=== PATIENT | female | born 1970 ===

== ENCOUNTER 2022-09-01 05:53 | Observation (INO) ==
[2022-08-25 12:13] LABS: Basophils % 0.2 % (0.0-0.8); Eosinophils # 0.1 10*3/uL (0.0-0.87); Eosinophils % 2.1 % (0.00-10.9); Hematocrit 37.6 VOL% (35.7-47.0); Hemoglobin 11.5 GM/DL (12.0-16.0); Immature Granulocytes % 0.2 %; Immature Granulocytes Absolute 0.01 #; Lymphocytes # 2.2 10*3/uL (1.4-4.0); Lymphocytes % 38.4 % (21.3-54.2); Mean Corpuscular HGB Conc 30.6 GM/DL (32-36); Mean Corpuscular Volume 67.7 FL (87-102); Monocytes # 0.5 10*3/uL (0.11-0.8); Monocytes % 8.1 % (1.7-12.7); Platelet Count 214 T/CUMM (130-400); Red Blood Count 5.55 MC/CUMM (3.8-5.5); Red Cell Distribution Width 18.2 % (9.3-17.3); White Blood Count 5.7 T/CUMM (4-12)
[2022-08-25 12:30] LABS: Calcium 9.4 MG/DL (8.5-10.1); Osmolality,Calculated 284.1 MOS/KG (273-304)
[2022-09-01] MEDS ORDERED: ROCURONIUM 50 MG/5 ML VIAL IV ONE (06:15)
[2022-09-01] MEDS ORDERED: propofoL 200 MG/20 ML VIAL IV ONE (06:15)
[2022-09-01] MEDS ORDERED: ONDANSETRON 4 MG/2 ML VIAL ONE (06:15)
[2022-09-01] MEDS ORDERED: LIDOCAINE 2% 5 ML VIAL ONE (06:15)
[2022-09-01] MEDS ORDERED: MIDAZOLAM 2 MG/2 ML VIAL ONE (06:16)
[2022-09-01] MEDS ORDERED: fentaNYL 100 MCG/2 ML VIAL ONE (06:16)
[2022-09-01] MEDS ORDERED: GABAPENTIN 400 MG CAPSULE PO ONE (06:28)
[2022-09-01] MEDS ORDERED: FAMOTIDINE 20 MG TABLET PO ONE (06:28)
[2022-09-01] MEDS ORDERED: ACETAMINOPHEN 500 MG TABLET PO ONE (06:28)
[2022-09-01] MEDS ORDERED: BUPIVACAINE MPF 0.5% 30 ML VIAL ONE (06:28)
[2022-09-01] MEDS ORDERED: DEXAMETHASONE 4 MG/1 ML VIAL ONE ×3 (06:28→09:08)
[2022-09-01] MEDS ORDERED: DIAZEPAM 5 MG TABLET PO ONE (06:28)
[2022-09-01] MEDS: LACTATED RINGERS 1,000 ML IV SCH (06:30)
[2022-09-01] MEDS ORDERED: GLYCOPYRROLATE 0.4 MG/2 ML VIAL ONE (09:05)
[2022-09-01] MEDS ORDERED: NEOSTIGMINE 10 MG/10 ML VIAL ONE (09:06)
[2022-09-01] MEDS ORDERED: ONDANSETRON 4 MG/2 ML VIAL IV PRN (09:12)
[2022-09-01] MEDS ORDERED: MORPHINE 2 MG/1 ML SYRINGE IV PRN (09:12)
[2022-09-01] MEDS ORDERED: SEVOFLURANE 1 UNIT/15 MINUTE INH ONE (09:19)
[2022-09-01] MEDS ORDERED: PHENYLEPHRINE 1 MG/10 ML SYRINGE IV ONE (09:20)
[2022-09-01] MEDS ORDERED: ALBUTEROL/IPRATROPIUM 3 ML NEB RESP TX ONE (09:27)
[2022-09-01] MEDS ORDERED: SUGAMMADEX 200 MG/2 ML VIAL IV ONE (09:28)
[2022-09-01] MEDS: ceFAZolin 2,000 MG/50 ML DUPLEX IV SCH ×2 (15:40→23:30)
[2022-09-02] MEDS: LACTATED RINGERS 1,000 ML IV SCH (06:32)
[2022-09-02 07:59] LABS: Basophils % 0.1 % (0.0-0.8); Hematocrit 26.7 VOL% (35.7-47.0); Hemoglobin 8.5 GM/DL (12.0-16.0); Immature Granulocytes % 0.3 %; Immature Granulocytes Absolute 0.02 #; Lymphocytes # 2.9 10*3/uL (1.4-4.0); Lymphocytes % 35.8 % (21.3-54.2); Mean Corpuscular HGB Conc 31.8 GM/DL (32-36); Mean Corpuscular Volume 66.4 FL (87-102); Monocytes # 1.1 10*3/uL (0.11-0.8); Monocytes % 14.2 % (1.7-12.7); Neutrophils % 49.6 % (38.7-73.9); Platelet Count 227 T/CUMM (130-400); Red Blood Count 4.02 MC/CUMM (3.8-5.5); Red Cell Distribution Width 17.2 % (9.3-17.3)
[2022-09-02] MEDS ORDERED: LACTATED RINGERS 1,000 ML IV ONE (09:00)
[2022-09-02] MEDS: amLODIPine 5 MG TABLET PO SCH (09:32)
[2022-09-02] MEDS: PANTOPRAZOLE 40 MG TABLET PO SCH (09:32)
[2022-09-02] MEDS ORDERED: SODIUM CHLORIDE 0.9% 1,000 ML IV PRN ×2 (12:34→16:40)
[2022-09-02 17:23] LABS: INR 0.9; PT Patient Result 10.5 SECS (10.1-12.1); Partial Thromboplastin Time 26.3 SECS (23.7-32.9)
[2022-09-02] MEDS ORDERED: PROMETHAZINE INJ 25 MG in SODIUM CHLORIDE 0.9% 50 ML IV PRN (18:46)
[2022-09-02] MEDS ORDERED: ONDANSETRON 4 MG/2 ML VIAL IV PRN (18:46)
[2022-09-02] MEDS ORDERED: MEPERIDINE 25 MG/1 ML VIAL IV PRN (18:46)
[2022-09-02] MEDS ORDERED: diphenhydrAMINE 50 MG/1 ML VIAL IV PRN (18:46)
[2022-09-02] MEDS: HYDROmorphone 1 MG/1 ML SYRINGE IV PRN ×2 (20:05→20:10)
[2022-09-03 05:39] LABS: Basophils % 0.3 % (0.0-0.8); Eosinophils # 0.1 10*3/uL (0.0-0.87); Eosinophils % 0.7 % (0.00-10.9); Hematocrit 29.5 VOL% (35.7-47.0); Hemoglobin 9.5 GM/DL (12.0-16.0); Immature Granulocytes % 0.3 %; Immature Granulocytes Absolute 0.03 #; Lymphocytes # 2.7 10*3/uL (1.4-4.0); Lymphocytes % 30.2 % (21.3-54.2); Mean Corpuscular HGB Conc 32.2 GM/DL (32-36); Mean Corpuscular Volume 71.8 FL (87-102); Monocytes # 0.9 10*3/uL (0.11-0.8); Monocytes % 9.7 % (1.7-12.7); Neutrophils % 58.8 % (38.7-73.9); Platelet Count 165 T/CUMM (130-400); Red Blood Count 4.11 MC/CUMM (3.8-5.5); Red Cell Distribution Width 19.7 % (9.3-17.3); White Blood Count 9.1 T/CUMM (4-12)
[2022-09-03 06:38] LABS: Platelet Estimate Adequate
[2022-09-03] MEDS: amLODIPine 5 MG TABLET PO SCH (10:11)
[2022-09-03] MEDS: PANTOPRAZOLE 40 MG TABLET PO SCH (10:11)
[2022-09-03 11:43] VITALS: BP 130/74
[2022-09-03] MEDS: LACTATED RINGERS 1,000 ML IV SCH (14:10)
== END 2022-09-03 14:40 | disposition home or self-care (01) ==
LOC: N.SDSINP 05:53 → N.OR 05:53 → N.3E 05:53
PROVIDERS: ADMIT Surgery; ATTEND Surgery